=== PATIENT | female | born 1945 | race Caucasian/White ===

== ENCOUNTER 2022-06-25 09:45 | Outpatient (RCR) | payer MEDICARE, BC, SELFPAY | END 2022-10-01 11:43 | disposition home or self-care (01) | PROVIDERS: PCP Family Medicine; Visit Provider Family Medicine | DX: Z98.890 Other specified postprocedural states (principal); Z51.89 Encounter for other specified aftercare | CPT/HCPCS: 97032; 97110; 97112; 97140; 97162 ==

== ENCOUNTER 2022-09-20 07:55 | Outpatient (CLI) | payer MEDICARE, BC, SELFPAY ==
--- NOTE | 2022-09-20 08:15 | CRLHL7_ITS ---
For Patients: As a result of the Century Cures Act, medical imaging exams and procedure reports are released immediately into your electronic medical record. You may view this report before your referring provider. If you have questions, please contact your health care provider. BILATERAL SCREENING MAMMOGRAM WITH COMPUTER-AIDED DETECTION AND TOMOSYNTHESIS TECHNIQUE: CC and MLO views were obtained. These mammographic images have been obtained using full-field digital technique. These mammographic images were interpreted with the benefit of computer-aided detection. Breast Tomosynthesis was used in this interpretation. COMPARISON FILM: 08/24/20, 08/20/19, 07/29/18. FINDINGS: There are scattered areas of fibroglandular density IMPRESSION: There is no radiographic evidence for malignancy. ASSESSMENT: BI-RADS Category 1: Negative RECOMMENDATION: Routine screening mammogram in 1 year. A lay language report of this examination will be provided to the patient. Will Morris M.D. Diagnostic Radiologist [email or web address] IGNACIO/Dictated by: Will Morris MD @ 09/20/2022 10:57:00 AM (Electronically Signed)
== END 2022-09-20 07:56 | disposition home or self-care (01) ==
LOC: MAMMO 07:55
PROVIDERS: PCP Family Medicine; Visit Provider Family Medicine
DX: Z12.31 Encounter for screening mammogram for malignant neoplasm of breast (principal)
CPT/HCPCS: 77063; 77067

== ENCOUNTER 2023-10-01 08:01 | Outpatient (CLI) | payer MEDICARE, BC, SELFPAY ==
--- NOTE | 2023-10-01 08:15 | CRLHL7_ITS ---
For Patients: As a result of the Cures Act, medical imaging exams and procedure reports are released immediately into your electronic medical record. You may view this report before your referring provider. If you have questions, please contact your health care provider. BILATERAL SCREENING MAMMOGRAM WITH COMPUTER-AIDED DETECTION AND TOMOSYNTHESIS TECHNIQUE: CC and MLO views were obtained. These mammographic images have been obtained using full-field digital technique. These mammographic images were interpreted with the benefit of computer-aided detection. Breast Tomosynthesis was used in this interpretation. COMPARISON FILM: 09/20/22, 09/18/21, 08/24/20. FINDINGS: There are scattered areas of fibroglandular density IMPRESSION: There is no radiographic evidence for malignancy. ASSESSMENT: BI-RADS Category 1: Negative RECOMMENDATION: Routine screening mammogram in 1 year. A lay language report of this examination will be provided to the patient. THOMAS FREED M.D. Diagnostic/Nuclear Medicine Radiologist [email or web address] REAGAN:[email or web address] Transcribed: 3:30 p.[email or web address] becerril/Dictated by: Thomas Freed MD @ 10/02/2023 8:40:00 AM (Electronically Signed)
== END 2023-10-01 08:02 | disposition home or self-care (01) ==
LOC: MAMMO 08:07
PROVIDERS: PCP Family Medicine; Visit Provider Family Medicine
DX: Z12.31 Encounter for screening mammogram for malignant neoplasm of breast (principal)
CPT/HCPCS: 77063; 77067

== ENCOUNTER 2023-10-15 14:43 | Outpatient (CLI) | payer MEDICARE, BC, SELFPAY ==
--- NOTE | 2023-10-15 15:00 | CRLHL7_ITS ---
For Patients: As a result of the Century Cures Act, medical imaging exams and procedure reports are released immediately into your electronic medical record. You may view this report before your referring provider. If you have questions, please contact your health care provider. CLINICAL HISTORY: Postmenopausal bleeding TECHNIQUE: 2D huang scale and color Doppler images were acquired of the pelvis using a transvaginal approach. FINDINGS: Uterus measures 7.7 x 4.0 x 5.0. Hyperechoic focus within the anterior uterine myometrium measuring 7 x 5 x 8 millimeters hypoechoic fibroid within the lower uterine segment at the right posterior aspect measuring 12 x 9 x 13 millimeters. The endometrial lining measures 5 mm in thickness. The ovaries are not visualized. There are no suspicious fluid collections within the cul-de-sac. IMPRESSION: Lower uterine segment intramural fibroid measuring 1.3 cm. Partially calcified fibroid within the fundal myometrium measuring 8 millimeters. Endometrium measures 5 millimeters. Dictated by Will Morris MD @ 10/16/2023 8:57:09 AM (Electronically Signed)
== END 2023-10-15 14:44 | disposition home or self-care (01) ==
LOC: US 14:45
PROVIDERS: PCP Family Medicine; Visit Provider Obstetrics & Gynecology
DX: N95.0 Postmenopausal bleeding (principal); D25.1 Intramural leiomyoma of uterus
CPT/HCPCS: 76830; 76857

== ENCOUNTER 2023-10-20 09:37 | Outpatient (CLI) | payer MEDICARE, BC, SELFPAY | END 2023-10-20 09:38 | disposition home or self-care (01) | LOC: NFLDREF 10-21 19:12 | PROVIDERS: PCP Family Medicine; Referring Provider Family Medicine; Visit Provider Obstetrics & Gynecology | DX: R30.0 Dysuria (principal) | CPT/HCPCS: 87086; 87186 ==

== ENCOUNTER 2024-11-05 08:10 | Outpatient (CLI) | payer MEDICARE, BC, SELFPAY ==
--- NOTE | 2024-11-05 08:15 | CRLHL7_ITS ---
For Patients: As a result of the Cures Act, medical imaging exams and procedure reports are released immediately into your electronic medical record. You may view this report before your referring provider. If you have questions, please contact your health care provider. BILATERAL SCREENING MAMMOGRAM WITH COMPUTER-AIDED DETECTION AND TOMOSYNTHESIS TECHNIQUE: CC and MLO views were obtained. These mammographic images have been obtained using full-field digital technique. These mammographic images were interpreted with the benefit of computer-aided detection. Breast Tomosynthesis was used in this interpretation. COMPARISON FILM: 10/01/23, 09/20/22, 09/18/21. FINDINGS: There are scattered areas of fibroglandular density IMPRESSION: There is no radiographic evidence for malignancy. ASSESSMENT: BI-RADS Category 1: Negative RECOMMENDATION: Routine screening mammogram in 1 year. A lay language report of this examination will be provided to the patient. Will Morris M.D. Diagnostic Radiologist [email or web address]/[email or web address] Transcribed: 2:01 p.[email or web address] becerril/Dictated by: Will Morris MD @ 11/05/2024 11:07:00 AM (Electronically Signed)
== END 2024-11-05 08:11 | disposition home or self-care (01) ==
LOC: MAMMO 08:11
PROVIDERS: PCP Family Medicine; Visit Provider Family Medicine
DX: Z12.31 Encounter for screening mammogram for malignant neoplasm of breast (principal)
CPT/HCPCS: 77063; 77067